=== PATIENT | female | born 1940 | race Hispanic/Latino ===

== ENCOUNTER 2021-05-05 15:59 | Emergency (ER) | payer MEDICARE ==
[~2021-05-05] VITALS: Ht 147.3 cm; Wt 54.4 kg
[~2021-05-05 15:59] MED LIST: AMLODIPINE BESY10 MG PO; BEET ROOT PO; CALTRATE PLUS1 EACH PO; CARVEDILOL3.125 MG PO; CLOPIDOGREL75 MG PO; LEVOTHYROXINE25 MCG PO; LISINOPRIL20 MG PO; METFORMIN HCL500 MG PO; MULTIVITAMIN PO; PRAVASTATIN SOD40 MG PO
[2021-05-05 16:55] LABS: STREPTOCOCCUS GRP A ANTIGEN NEGATIVE (NEGATIVE)
[2021-05-05 17:28] LABS: INFLUENZAE A&B ANTIGEN (RAPID) NEGATIVE (NEGATIVE)
[2021-05-05] MEDS ORDERED: CASIRIVIMAB/IMDEVIMAB 10 ML in SODIUM CHLORIDE 0.9% 100 ML IV ONE (17:30)
== END 2021-05-05 18:50 | disposition home or self-care (01) ==
LOC: ER 16:57
DX: U07.1 COVID-19 (principal); R05.9 Cough, unspecified; I10 Essential (primary) hypertension; E11.9 Type 2 diabetes mellitus without complications; E03.9 Hypothyroidism, unspecified; E78.00 Pure hypercholesterolemia, unspecified
CPT/HCPCS: 71045; 83518; 87070; 87400; 99284; J7050; U0002